=== PATIENT | male | born 1945 | race Caucasian/White ===

== ENCOUNTER → 2025-07-13 16:01 | Outpatient (REF) | payer MEDICARE, SELFPAY ==
[2025-07-13 17:30] LABS: Blood Urea Nitrogen 37 mg/dl (9-20); Calcium 10.0 mg/dl (8.4-10.2); Carbon Dioxide 27 mmol/L (22-30); Chloride 106 mmol/L (98-107); Glucose 152 mg/dl (70-99); Potassium 4.4 mmol/L (3.5-5.1); Sodium 141 mmol/L (135-145); eGFR 46.48
== END ==
LOC: REG 16:01
PROVIDERS: ATTENDING PHYSICIAN Surgery Vascular Surgery; FAMILY PHYSICIAN Internal Medicine
DX: I65.23 Occlusion and stenosis of bilateral carotid arteries (principal)
CPT/HCPCS: 36415; 80048

== ENCOUNTER → 2025-07-28 08:33 | Outpatient (REF) | payer MEDICARE, SELFPAY | LOC: RAD 08:33 | PROVIDERS: ATTENDING PHYSICIAN Surgery Vascular Surgery; FAMILY PHYSICIAN Internal Medicine | DX: I65.23 Occlusion and stenosis of bilateral carotid arteries (principal) | CPT/HCPCS: 70496; 70498; 93880; Q9967 ==

== ENCOUNTER → 2025-09-15 14:30 | Outpatient (REF) | payer MEDICARE, SELFPAY | LOC: HWRAD 14:30 | PROVIDERS: ATTENDING PHYSICIAN Surgery Vascular Surgery; FAMILY PHYSICIAN Internal Medicine | DX: R55 Syncope and collapse (principal); R41.82 Altered mental status, unspecified | CPT/HCPCS: 70450 ==

== ENCOUNTER 2025-09-20 06:22 | Inpatient (IN) | payer MEDICARE, SELFPAY ==
[2025-09-13 09:42] VITALS: BMI 21.7
[2025-09-13 10:47] LABS: Hematocrit 37.7 % (39.0-52.0); Hemoglobin 12.5 g/dL (13.0-18.0); Mean Corp Hgb Conc. 33.2 g/dL (33.0-37.0); Mean Corpuscular Volume 91.7 fL (80.0-94.0); Nucleated Red Blood Cells % 0 % (-); Platelet Count 209 10^3/uL (130-400); Red Cell Dist. Width 13.7 % (11.5-14.5)
[2025-09-13 11:04] LABS: INR 1.05; PT 14.0 Sec (11.4-14.6)
[2025-09-13 11:05] LABS: APTT 29.9 Sec (23.4-35.0)
[2025-09-13 11:27] LABS: Blood Urea Nitrogen 34 mg/dl (9-20); Calcium 9.6 mg/dl (8.4-10.2); Carbon Dioxide 23 mmol/L (22-30); Chloride 108 mmol/L (98-107); Estimated Creatinine Clearance 38 ml/min; Glucose 123 mg/dl (70-99); Potassium 3.9 mmol/L (3.5-5.1); Sodium 140 mmol/L (135-145); eGFR 46.48
[2025-09-20] VITALS (13 sets, daily range): BP systolic 126–163; BP diastolic 56–75; BMI 21.4
--- NOTE | 2025-09-20 07:05 | W.SUR.PREOP ---
Pre-Operative Surgical Note
-
I have examined this patient prior to the performance of the scheduled procedure.
The patient's condition is unchanged from the time of the current History and
Physical and the patient is able to undergo the scheduled procedure.
--- NOTE | 2025-09-20 07:06 | HP.FOC2 ---
Focused History & Physical
Chief Complaint
HPI:
Chief Complaint: Left carotid artery stenosis
HPI / Indication for Planned Procedure: This is an 80-year-old male with significant past medical history for coronary artery disease status post CABG, syncope, hyperlipidemia, chronic kidney disease, hyperkalemia, diabetes, bradycardia, kidney
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 Patient presents to [facility] for scheduled
left carotid endarterectomy with Dr. Dom Gonzalez III. Patient denies nausea, vomiting, fever, chills, headache, abdominal pain, chest pain, shortness of breath, and dyspnea on exertion. He does endorse continued left arm and leg weakness but is
making improvements with intensive therapy. He utilizes a left leg brace and intermittently wheelchair for ambulation purposes. He endorses he is at his baseline health today.
Relevant Past Medical History: Other (coronary artery disease status post CABG, syncope, hyperlipidemia, chronic kidney disease, hyperkalemia, diabetes, bradycardia, kidney stones, acid reflux, prostate cancer, neuropathy, atrial fibrillation,
achalasia of esophagus, diabetic retinopathy, and right hemisphere CVA January 06, 2025 with )
Relevant Social History: Negative
Relevant Family History: Negative
Relevant Past Surgical History: Positive for (CABG)
Review of Systems
Review of Pertinent Systems: All Systems Negative
Medication
See Medication form for detailed medications: Yes
Medication List (including Herbals & OTC):
acetaminophen 325 mg tablet (Tylenol) 325 mg PO PRN PRN PAIN 09/09/25
amlodipine 5 mg tablet 5 mg PO HS 09/09/25
aspirin 81 mg tablet,delayed release 81 mg PO DAILY 09/09/25
atorvastatin 80 mg tablet 80 mg PO HS 09/09/25
docusate sodium 100 mg capsule (Colace) 100 mg PO BID 09/09/25
empagliflozin 25 mg tablet (Jardiance) 25 mg PO DAILY 09/09/25
pantoprazole 40 mg tablet,delayed release 40 mg PO DAILY 09/09/25
semaglutide 0.25 mg or 0.5 mg (2 mg/3 mL) subcutaneous pen injector (Ozempic) 0.25 mg SC QWEEK 09/09/25
tamsulosin 0.4 mg capsule (Flomax) 0.4 mg PO HS 09/09/25
ticagrelor 90 mg tablet (Brilinta) 90 mg PO BID 09/09/25
Medications Reviewed: Yes
Allergies and Reactions
Patient has Allergies: Yes
Noted Allergies and Reactions:
Allergy/AdvReac Type Severity Reaction Status Date / Time
Penicillins Allergy Rash Verified 09/09/25 16:43
Pertinent Physical Exam
All Other Systems: Negative
Head/Neck: Normal
Lungs: Normal (Bilateral lungs clear to auscultation)
Heart: Other (RRR with murmur)
Abdomen: Normal (Nontender and nondistended)
Extremities: Other (Left upper extremity and lower extremity with residual weakness following stroke in December 2024)
Neurological: Other (Left upper extremity and lower extremity with residual weakness following stroke in December 2024)
Diagnosis / Assessment
Assessment: 80-year-old male with significant left carotid stenosis
Plan / Procedure
Plan: Will proceed with scheduled left carotid endarterectomy with Dr. Dom Gonzalez III
Anesthesia/Sedation to be done by Anesthesia Provider: Yes
[2025-09-20 07:07] LABS: Glucose - Point of Care 147 mg/dl (70-99)
[2025-09-20] MEDS: BACTROBAN NASAL 1 GRAM NASAL (07:20)
[2025-09-20] MEDS: PERIDEX 0.12% ORAL RINSE 15 ML PO (07:20)
[2025-09-20] MEDS: NSS 500 IV (07:21)
[2025-09-20] MEDS: VANCOCIN 200 IV (07:22)
[2025-09-20 09:07] LABS: ACT-LR - POC 277 Seconds (116-155)
[2025-09-20 09:20] LABS: Glucose - Point of Care 175 mg/dl (70-99)
[2025-09-20 09:50] LABS: ACT-LR - POC 244 Seconds (116-155)
[2025-09-20 11:01] LABS: Glucose - Point of Care 205 mg/dl (70-99)
[2025-09-20] MEDS: NOVOLOG vial 1 UNITS SC (11:15)
--- NOTE | 2025-09-20 12:38 | CON.INTV ---
Consultation
Consultation Request
Date/Time Consultation Requested: 09/20/2025-12:30 PM
Date/Time Consultation Performed: 09/20/2025- 45 PM
Requesting Provider: Dr. Gonzalez
Performing Provider: Dr. Tomas
Reason for Consultation: Postoperative critical care management
Medical History
-
Chief Complaint: Carotid stenosis-left
History of Present Illness:
80-year-old non-smoking male with a history of hyperlipidemia, CAD/CABG, chronic kidney disease, diabetes, kidney stones, GERD, prostate cancer, neuropathy, atrial fibrillation, right hemispheric CVA December 2024 with residual left-sided weakness
presented with known left carotid stenosis and underwent left carotid endarterectomy 09/20/[address] 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 Patient was seen in the surgical intensive care unit. Operative records
were reviewed. He denies any shortness of breath, chest pain, chest tightness, abdominal pain, leg swelling or focal weakness, dysarthria or numbness.
Past Medical History
Past Medical History: None (CAD/CABG. Syncope. Hyperlipidemia. Chronic kidney disease. Diabetes. Kidney stones. GERD. Prostate cancer. Neuropathy. Atrial fibrillation. Achalasia of esophagus. Retinopathy. Right hemispheric CVA 12/2024
with residual hemiparesis)
Social History
Tobacco: Non-smoker
Alcohol: None
Drug: None
Occupational Exposures: No known asbestos exposure
Environmental Exposures: no known tuberculosis exposure
Family History
Family History: Reviewed & Not Pertinent
Allergies / Home Medications
Allergies
Allergy/AdvReac Type Severity Reaction Status Date / Time
Penicillins Allergy Intermediate Rash Verified 09/20/25 07:14
Home Medications
�Medication �Instructions �Recorded �Confirmed �Last Taken �Type
acetaminophen 325 mg tablet 325 mg PO PRN PRN PAIN left 09/09/25 09/20/25 09/19/25 20:00 History
(Tylenol) shoulder, headache and stiff neck
amlodipine 5 mg tablet 5 mg PO HS 09/09/25 09/20/25 09/19/25 20:00 History
aspirin 81 mg tablet,delayed 81 mg PO DAILY 09/09/25 09/20/25 09/19/25 09:00 History
release
atorvastatin 80 mg tablet 80 mg PO HS 09/09/25 09/20/25 09/19/25 20:00 History
docusate sodium 100 mg capsule 100 mg PO BID 09/09/25 09/20/25 09/19/25 21:00 History
(Colace)
empagliflozin 25 mg tablet 25 mg PO DAILY 09/09/25 09/20/25 09/16/25 08:00 History
(Jardiance)
pantoprazole 40 mg tablet,delayed 40 mg PO DAILY 09/09/25 09/20/25 09/19/25 09:00 History
release
semaglutide 0.25 mg or 0.5 mg (2 0.25 mg SC QWEEK 09/09/25 09/20/25 09/10/25 11:00 History
mg/3 mL) subcutaneous pen injector
(Ozempic)
tamsulosin 0.4 mg capsule (Flomax) 0.4 mg PO HS 09/09/25 09/20/25 09/19/25 20:00 History
ticagrelor 90 mg tablet (Brilinta) 90 mg PO BID 09/09/25 09/20/25 09/19/25 20:00 History
Review of Systems
-
Unable to Obtain full review of systems at this time due to: Other (Per HPI)
Vitals / Labs / Diagnostic Testing
Vital Signs
Temp Pulse Resp BP Pulse Ox
99.0 F 75 13 133/59 99
09/20/25 11:40 09/20/25 12:15 09/20/25 12:15 09/20/25 12:15 09/20/25 12:15
Diagnostic Testing:
Physical Exam
-
Exam:
Well-nourished and well-developed in no apparent distress
HEENT-atraumatic, normocephalic
Neck-supple, no JVD, no bruit
Heart-regular rate and rhythm-no murmurs, rubs or gallops
Chest-clear to auscultation, no wheezes, crackles
Back-no tenderness
Abdomen-soft, nontender, nondistended, no hepatosplenomegaly
Extremities-no cyanosis, clubbing, edema and good peripheral pulses
Integument-intact, no rashes, lesions or ecchymosis
Neurology-alert and oriented, mild hemiparesis
Assessment
-
80-year-old non-smoking male with a history of hyperlipidemia, CAD/CABG, chronic kidney disease, diabetes, kidney stones, GERD, prostate cancer, neuropathy, atrial fibrillation, right hemispheric CVA December 2024 with residual left-sided weakness
presented with known left carotid stenosis and underwent left carotid endarterectomy 09/20/[address] 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
Left carotid stenosis
Status post left CEA-Dr. Gonzalez 09/20/2025
History CVA December 2024
Mild normocytic anemia-hemoglobin 12.5
Chronic renal insufficiency-serum creatinine 1.5
Hyperglycemia-blood sugar 123
Conditions present prior to admission:
CAD/CABG.
Syncope.
Hyperlipidemia.
Chronic kidney disease.
Diabetes.
Kidney stones.
GERD.
Prostate cancer.
Neuropathy.
Atrial fibrillation.
Achalasia of esophagus.
Retinopathy.
Right hemispheric CVA 12/2024 with residual hemiparesis
Fracture arm 1972. Nephroureterostomy 1993. CABG x 3-HUP 2016. POEM procedure at [place] 2022.
Plan
Postoperative surgical intensive care unit monitoring
Supplemental oxygen as needed
Incentive spirometry
Aspiration precautions
Neuro and vascular checks per protocol
Monitor blood pressure/perfusion pressures and pulses closely
Vascular surgery following-correspondence and operative notes reviewed
DVT prophylaxis
Early nutrition
Early mobilization
Reviewed with and children at the bedside
Critical care statement: A total of 55 minutes of critical care time was provided for this patient today. This includes management of unstable vital signs, evaluation of the patient at bedside, reviewing the patient's pertinent medical records
including radiographs, microbiology, laboratory evaluations, and discussion with primary team, consultants, pharmacy, nutrition, physical therapy, case management, charge nurse, critical care nursing, and respiratory therapy.
Diagnostic data:
Chest x-ray 09/13/2025-lungs clear
CT head 09/15/2025-no acute intracranial abnormalities, unchanged encephalomalacia within the right aspect of the davon, moderate atrophy with sequelae of moderate chronic small vessel ischemic disease
Data Reviewed
-
EKG: Report reviewed by me
Radiology: Report reviewed by me
CT Scan: Report reviewed by me
Medical Tests (Nuc Med, Echo etc): Report reviewed by me
Labs: Labs reviewed by me
Old Records: Reviewed
Critical Care Time (in minutes): 55
--- NOTE | 2025-09-20 12:45 | PTCARENOTE ---
Patient arrived from PACU. Oriented to room and use of call park. Neuro checks in place; pt has chronic left facial droop/LUE/LLE weakness from hx stroke. Joi zeroed and correlating to external BP cuff. Reports 2-4 pain out of 10 to left neck
incision. PRN Tylenol provided. Incision is C/D/I. Ice pack in place to site. 2 RN skin check done; left heel and sacrum red, intact and blanching. Bruise to left buttock from recent fall. EKG/ Labs/ CBG/ CXR done per protocol. SCDs on. NSR w/
degree. on tele. Condom cath placed. Otherwise see work-list assessment. Call park within reach. Pt thankful for care.
[2025-09-20 13:05] LABS: Glucose - Point of Care 161 mg/dl (70-99)
--- NOTE | 2025-09-20 13:17 | OR.RPT ---
Operative Report
Operative Report
Date of Operation: 09/20/2025
Pre Op Diagnosis: Left carotid stenosis, asymptomatic
Post Op Diagnosis: Left carotid stenosis, asymptomatic
Procedure: LEFT carotid endarterectomy with patch angioplasty using bovine pericardium
Surgeon: Dom Gonzalez III, MD
Children'S Program Coordinator: Rosie Vanessa MD PGY2
Anesthesia: General
Complications: None
History and Indications for Procedure: 80-year-old male with asymptomatic high-grade calcified left carotid artery stenosis
Procedure in Detail: Hardy Pizano was correctly identified and placed supine on the operating table. After adequate induction of anesthesia the left neck was positioned, prepped and draped in the usual sterile fashion. Preoperative antibiotics
were administered. A time out procedure was performed with the nursing and anesthesia staff confirming the patients identity as well as the nature and laterality of the procedure.
The carotid bifurcation was marked with ultrasound at the beginning of the case. The incision was planned accordingly. An incision was made along the anterior border of the left sternocleidomastoid muscle. Electrocautery was used to divide the
subcutaneous tissue and platysma. The carotid sheath was entered with sharp dissection. The internal jugular vein was retracted laterally. The vagus nerve was identified and protected throughout the case. The common carotid artery was identified at
the base of this incision and carefully encircled with a vessel loop. The patient was systemically heparinized. The dissection was continued distally towards the carotid bifurcation. The facial vein was skeletonized, ligated and divided between ties
and clips. The proximal external carotid artery was encircled with a vessel loop. The distal internal carotid artery was encircled with a vessel loop at a soft spot on the artery beyond the plaque.
The internal vessel loop was secured followed by the common and external. An arteriotomy was made on the distal common carotid artery with an 11-blade. This was extended proximally and distally with Seaman scissors. The arteriotomy was extended
distally through the plaque to an area of normal appearing internal carotid artery. The distal vessel loop was replaced with a short tip hockey-stick type vascular clamp. An endarterectomy was performed with a Merrillan elevator in the standard
fashion. The proximal extent of the plaque was transected with scissors. The distal end of the plaque in the internal carotid artery was feathered. No distal intimal flap was identified. The plaque extending into the external carotid artery was
everted. Once the plaque was fully removed the endarterectomy plane was irrigated with heparinized saline and any loose fronds of tissue were removed. A pre-cut piece of bovine pericardium was sewn in place using a running 6-0 Prolene suture. Prior
to the completion of the patch the common carotid was allowed to forward bleed and the external was allowed to back bleed. The area under the patch was irrigated with heparinized saline to remove any potential thrombus or debris. The anastomosis was
completed.
The external vessel loop was released first, followed by the common and then the internal. There was an excellent pulse in the distal internal carotid artery. An excellent quality Doppler signal in the distal internal carotid artery was also
confirmed. The patch suture line was closely inspected for hemostasis and was achieved. Protamine was administered. Hemostasis was achieved in the wound bed. The wound was irrigated with saline solution.
The wound was then closed in layers. Sterile skin glue was applied. The patient awoke from anesthesia with no immediate neuro deficits and was taken to the PACU in stable condition.
Attestation: I was present and responsible for the entire procedure
Signed:
Dom Gonzalez III, MD
Vascular Surgery
[facility]
[2025-09-20] MEDS: NSS 1000 IV (13:26)
[2025-09-20] MEDS: TYLENOL 650 MG PO ×3 (13:27→23:53)
[2025-09-20 14:10] LABS: Hematocrit 31.5 % (39.0-52.0); Hemoglobin 11.1 g/dL (13.0-18.0); Mean Corp Hgb Conc. 35.2 g/dL (33.0-37.0); Mean Corpuscular Volume 90.0 fL (80.0-94.0); Platelet Count 168 10^3/uL (130-400); Red Cell Dist. Width 13.7 % (11.5-14.5)
[2025-09-20 14:18] LABS: INR 1.19; PT 15.4 Sec (11.4-14.6)
[2025-09-20 14:19] LABS: APTT 31.6 Sec (23.4-35.0)
[2025-09-20 14:34] LABS: ALT (SGPT) 17 U/L (0-50); AST (SGOT) 18 U/L (17-59); Albumin 3.6 g/dl (3.5-5.0); Alkaline Phosphatase 62 U/L (38-126); Blood Urea Nitrogen 33 mg/dl (9-20); Calcium 9.0 mg/dl (8.4-10.2); Carbon Dioxide 20 mmol/L (22-30); Chloride 111 mmol/L (98-107); Estimated Creatinine Clearance 42 ml/min; Glucose 156 mg/dl (70-99); Magnesium 1.9 mg/dl (1.6-2.3); Potassium 4.1 mmol/L (3.5-5.1); Sodium 136 mmol/L (135-145); Total Protein 6.2 g/dl (6.3-8.2); eGFR 50.49
--- NOTE | 2025-09-20 16:00 | PTCARENOTE ---
Patient tolerated clear liquid diet; diet advanced. Systems unchanged, family at bedside. Tylenol provided pain relief. Incision intact and unchanged. Call park within reach.
[2025-09-20] MEDS: HEPARIN 5000 UNITS SC ×2 (16:59→23:52)
[2025-09-20 17:13] LABS: Glucose - Point of Care 222 mg/dl (70-99)
[2025-09-20] MEDS: NOVOLOG FLEXPEN-LOW RESISTANCE 3 UNITS SC (18:00)
--- NOTE | 2025-09-20 20:00 | PTCARENOTE ---
rec'd pt resting in bed, neuro check q1hr, denise , has previous cva w. left sided weakness & left facial droop, follows commands, 1' av block left rad igor w/ good wave form, flushes well, zeroed, accurate to cuff, to keep [id number], weak distal
pulses, skin warm/dry, RA, lungs decr in bases, sat 99, reaches 1500 on IS, + bowel sounds, no bm, abd soft, nontender, no n/v, kim fluids, #21 condom cath on- voiding yellow urine, left neck inc w/ surgical adhesive, ecchy at site
[2025-09-20] MEDS: BRILINTA 90 MG PO (20:07)
[2025-09-20] MEDS: NORVASC 5 MG PO (21:55)
[2025-09-20] MEDS: FLOMAX 0.4 MG PO (21:55)
[2025-09-20] MEDS: LIPITOR 80 MG PO (21:56)
[2025-09-20 22:05] LABS: Glucose - Point of Care 208 mg/dl (70-99)
--- NOTE | 2025-09-21 | PTCARENOTE ---
sys reviewed, neuro unch, CHG bath done, linens changed
[2025-09-21 00:14] VITALS: BP 153/61
[2025-09-21] MEDS: NSS 1000 IV (01:02)
[2025-09-21 03:21] LABS: Hematocrit 29.2 % (39.0-52.0); Hemoglobin 10.2 g/dL (13.0-18.0); Mean Corp Hgb Conc. 34.9 g/dL (33.0-37.0); Mean Corpuscular Volume 90.7 fL (80.0-94.0); Platelet Count 166 10^3/uL (130-400); Red Cell Dist. Width 13.7 % (11.5-14.5)
[2025-09-21 03:27] LABS: INR 1.19; PT 15.4 Sec (11.4-14.6)
[2025-09-21 03:28] LABS: APTT 40.7 Sec (23.4-35.0)
[2025-09-21 03:44] LABS: Blood Urea Nitrogen 29 mg/dl (9-20); Calcium 8.8 mg/dl (8.4-10.2); Carbon Dioxide 21 mmol/L (22-30); Chloride 112 mmol/L (98-107); Estimated Creatinine Clearance 49 ml/min; Glucose 165 mg/dl (70-99); Potassium 4.2 mmol/L (3.5-5.1); Sodium 140 mmol/L (135-145); eGFR > 60.00
--- NOTE | 2025-09-21 04:00 | PTCARENOTE ---
sys reviewed, no changes
[2025-09-21 05:40] VITALS: BMI 21.2
--- NOTE | 2025-09-21 07:26 | W.PN.INTV ---
Today's Communication / Plan
Recommendations
Begin to deline
Increase activity
Neurovascular checks
Transfer out of ICU-tunnel miner will sign off-please call pulmonary with respiratory questions
Assessment
-
80-year-old non-smoking male with a history of hyperlipidemia, CAD/CABG, chronic kidney disease, diabetes, kidney stones, GERD, prostate cancer, neuropathy, atrial fibrillation, right hemispheric CVA December 2024 with residual left-sided weakness
presented with known left carotid stenosis and underwent left carotid endarterectomy 09/20/[address] Gonzalez-tunnel miner consulted for postoperative critical care management 09/20/25.
Left carotid stenosis
Status post left CEA-Dr. Gonzalez 09/20/2025
History CVA December 2024
Mild normocytic anemia-hemoglobin 12.5
Chronic renal insufficiency-serum creatinine 1.5
Hyperglycemia-blood sugar 123
Conditions present prior to admission:
CAD/CABG.
Syncope.
Hyperlipidemia.
Chronic kidney disease.
Diabetes.
Kidney stones.
GERD.
Prostate cancer.
Neuropathy.
Atrial fibrillation.
Achalasia of esophagus.
Retinopathy.
Right hemispheric CVA 12/2024 with residual hemiparesis
Fracture arm 1971. Nephroureterostomy 1993. CABG x 3-HUP 2016. POEM procedure at [place] 2022.
Plan
Hemodynamically and neurovascularly intact
Wean supplemental oxygen
Incentive spirometry encourage
Aspiration precautions
Monitor hemoglobin
Transfuse if needed
Monitor blood sugars
Insulin supplementation if needed
Neuro and vascular checks per protocol also continue
Vascular surgery closely
DVT prophylaxis recommended
Nutrition
Increase activity/physical therapy
Patient can be transferred out of ICU-call pulmonary if respiratory issues arise
Reviewed the patient's pertinent medical records including radiographs, microbiology, laboratory evaluations, and discussion with primary team, consultants, pharmacy, nutrition, physical therapy, case management, charge nurse, critical care
nursing, and respiratory therapy.
Diagnostic data:
Chest x-ray 09/13/2025-lungs clear
CT head 09/15/2025-no acute intracranial abnormalities, unchanged encephalomalacia within the right aspect of the davon, moderate atrophy with sequelae of moderate chronic small vessel ischemic disease
Subjective Dataa
Subjective Data
Date of Service:
Date of Service: September 21, 2025
Chief Complaint: Intern Follow Up
Subjective:
Had a good night, no focal weakness or dysarthria, no shortness of breath, chest pain, chest congestion, abdominal pain
Review of Systems
General: Other (Per HPI)
Objective Data
Data Reviewed
Vital Signs / I&O / Oxygen:
Vital Signs
Temp Pulse Resp BP Pulse Ox
97.9 F 59 15 153/61 99
09/21/25 04:00 09/21/25 06:00 09/21/25 06:00 09/21/25 00:14 09/21/25 06:00
Intake and Output
09/20/25 09/21/25 09/22/25
06:59 06:59 06:59
Intake Total 2640 / 2640
Output Total 2250 / 2250
Balance 390 / 390
SaO2 99
Physical Exam
General: Respiratory Distress
HEENT: Normocephalic, Anicteric and Moist Mucous Membranes
Cardiovascular: Regular Rhythm and Murmur (n)
Respiratory: Clear, Crackles (n), Rhonchi (n), Non-Labored Respirations, Accessory Resp Muscle Use (n) and Stridor (n)
GI: Soft, Non Distended and Non Tender
Neurology: Awake, Alert and No Motor Deficits
Skin: Warm, Good Color, Cyanosis (n), Jaundice (n) and Rash (n)
Labs/Micro/Reports
Lab Data
09/21/25 03:00
09/21/25 03:00
Laboratory Results
09/20/25 09/21/25
14:01 03:00
PT 15.4 H 15.4 H
INR 1.19 1.19
APTT 31.6 40.7 H
[2025-09-21 07:34] LABS: Glucose - Point of Care 116 mg/dl (70-99)
--- NOTE | 2025-09-21 08:00 | PTCARENOTE ---
Received pt awake and alert.Speech is appropriate.Pre-existing weakness left upper and lower extremity.+4-5/5 right upper and lower extremity.Pt reports minor neck pain.SR with 1st degree AVB noted.IVF and A Line discontinued as ordered.Lungs
CTA.POX 98% on RA.Appetite excellent.Voiding via condom catheter.Left neck with surgical adhesive intact.Plan of care discussed with pt.
[2025-09-21] MEDS: NOVOLOG FLEXPEN-LOW RESISTANCE SC (08:03)
[2025-09-21] MEDS: ASPIR LOW (ENTERIC COATED) 81 MG PO (08:08)
[2025-09-21] MEDS: HEPARIN 5000 UNITS SC (08:08)
[2025-09-21] MEDS: BRILINTA 90 MG PO (08:08)
[2025-09-21] MEDS: FARXIGA 10 MG PO (08:08)
[2025-09-21] MEDS: PROTONIX 40 MG PO (08:08)
--- NOTE | 2025-09-21 09:04 | W.PN.VS ---
Addendum entered and electronically signed by Oumar Rico MD 09/21/25 14:45:
Seen and examined earlier this a.m. with HUBERT Dumont. Agree with findings as noted below. This is a late entry. Patient without complaints. Left neck incision clean dry and intact. No hematoma. Neurologically stable. Tongue midline. Plan/as
discussed and noted below.
Original Note:
Today's Communication / Plan
-
Patient seen and examined at bedside with Dr. Oumar Rico, below plan reviewed with attending.
Assessment/Plan
-
Assessment: 80-year-old male POD #1 left carotid endarterectomy
Plan:
Discontinue IV fluid
Discontinue arterial line
Out of bed to chair with progression ambulation as tolerated as patient has baseline weakness
Continue home regimen of dual antiplatelet therapy of aspirin 81 mg p.o. daily with Brilinta 90 mg p.o. daily, patient will also continue his statin regimen
Likely discharge later this afternoon pending patient progression
Subjective Data
-
Date of Service: September 21, 2025
Patient seen and examined at bedside with Dr. Oumar Rico M.D., patient offers no complaints. Denies headache, weakness to right upper or lower extremity. Reports well-managed postoperative pain at left neck incision. Currently eating breakfast and
tolerating p.o. diet well.
Objective Data
-
Vital Signs
Temp Pulse Resp BP Pulse Ox
98.1 F 59 15 153/61 99
09/21/25 07:37 09/21/25 06:00 09/21/25 06:00 09/21/25 00:14 09/21/25 06:00
Intake and Output
09/20/25 09/21/25 09/22/25
06:59 06:59 06:59
Intake Total 2640 / 2640
Output Total 2250 / 2250
Balance 390 / 390
Intake:
Oral fluids 860 / 860
IV fluids (Total) 1580 / 1580
NSS 620 / 620
Nss 1,000 ml @ 80 mls/hr IV . 960 / 960
[id number] PAULINE Rx#:[id number]
IV piggybacks 200 / 200
Output:
Urine, Voided 2250 / 2250
Lab Results
09/21/25 03:00
09/21/25 03:00
Calcium 8.8 mg/dl (8.4-10.2) 09/21/25 03:00
Phosphorus 3.5 mg/dl (2.5-4.5) 09/20/25 14:01
Magnesium 1.9 mg/dl (1.6-2.3) 09/20/25 14:01
Total Bilirubin 0.5 mg/dl (0.2-1.3) 09/20/25 14:01
AST 18 U/L (17-59) 09/20/25 14:01
ALT 17 U/L (0-50) 09/20/25 14:01
Alkaline Phosphatase 62 U/L (38-126) 09/20/25 14:01
Total Protein 6.2 g/dl (6.3-8.2) L 09/20/25 14:01
Albumin 3.6 g/dl (3.5-5.0) 09/20/25 14:01
Physical Exam
-
No apparent distress, resting in bed comfortably
Left neck surgical incision clean, dry, and intact, no evidence of hematoma, tongue midline
No tachycardia
No dyspnea on room air
Left upper extremity and lower extremity with continued unchanged weakness from baseline following a prior stroke, right upper extremity and lower extremity with full strength
--- NOTE | 2025-09-21 11:29 | PTCARENOTE ---
Pt assessed.No change in assessment noted.Assisted OOB to chair with 2 person moderate assist.Condom catheter removed.Pt's own attends applied as requested.
[2025-09-21 11:38] VITALS: BP 136/66
[2025-09-21 12:00] VITALS: BP 130/67
--- NOTE | 2025-09-21 12:24 | CM ---
December 2024, R CVA, L sided weakness Initial assessment completed with patient who lives with his in a 2 story plus basement home, B/B on , 3 steps to enter in back. 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
assistance with ADL's. Does not drive. Has a L leg brace, quad cane, transport chair, w/ch, SC, grab bars in BR, shower rail. Patient has home health services with [facility] for CLINICAL REVIEW NURSE 4 days a week for 4 hours/day; [facility] paid through Medicare for
PT/OT 2-3 x/week, and; Private rehab with [facility] 3 days a week-private pay. No HC-POA. No VA benefits. No psychiatric hospitalizations. PCP is Dr. Matt Egan. Pharmacy is [facility] in [place]. Discharge POC: Anticipate home
with resumption of above services.
[2025-09-21 13:03] LABS: Glucose - Point of Care 170 mg/dl (70-99)
--- NOTE | 2025-09-21 13:07 | PTCARENOTE ---
Pt assessed.No change in assessment noted.Awaiting for discharge as per MD order.
[2025-09-21] MEDS: NOVOLOG FLEXPEN-LOW RESISTANCE 1 UNITS SC (13:12)
--- NOTE | 2025-09-21 14:09 | W.DS.TRANS ---
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
-
Discharge Instructions:
Sleep Apnea Risk High
Discharge Diagnosis/Procedures Left carotid endarterectomy
Diet As tolerated
Activity No strenuous activity
Driving Restrictions Not until seen by your Dr
Bathing Restrictions OK to Shower
Instructions:
Stand-Alone Forms: Vascular Surg Discharge Instr
Changes to Home Medications: No
Discharge Medications:
DC Medications w/original date entered in [facility]
acetaminophen 325 mg tablet (Tylenol) 325 mg PO PRN PRN PAIN left shoulder, headache and stiff neck 09/09/25
amlodipine 5 mg tablet 5 mg PO HS Blood Pressure 09/09/25
aspirin 81 mg tablet,delayed release 81 mg PO DAILY Blood Clot Prevention/Tx 09/09/25
atorvastatin 80 mg tablet 80 mg PO HS High Cholesterol 09/09/25
docusate sodium 100 mg capsule (Colace) 100 mg PO BID Constipation 09/09/25
empagliflozin 25 mg tablet (Jardiance) 25 mg PO DAILY Diabetes 09/09/25
pantoprazole 40 mg tablet,delayed release 40 mg PO DAILY Gastrointestinal Issue 09/09/25
semaglutide 0.25 mg or 0.5 mg (2 mg/3 mL) subcutaneous pen injector (Ozempic) 0.25 mg SC QWEEK Diabetes 09/09/25
tamsulosin 0.4 mg capsule (Flomax) 0.4 mg PO HS Urinary Issue 09/09/25
ticagrelor 90 mg tablet (Brilinta) 90 mg PO BID Blood Clot Prevention/Tx 09/09/25
Home Medication Changes
Pending Results: No
--- NOTE | 2025-09-21 15:05 | CM ---
Patient has been medically cleared for discharge to home with resumption of previous services arranged by patient. Patient has arranged for transport home.
== END 2025-09-21 14:57 | disposition home or self-care (01) | DRG 38 ==
LOC: ICU 06:22
PROVIDERS: ADMITTING PHYSICIAN Surgery Vascular Surgery; CONSULT PHYSICIAN Internal Medicine Critical Care Medicine; PRIMARYCARE PHYSICIAN Internal Medicine
PROC: 03UJ0KZ Supplement Left Common Carotid Artery with Nonautologous Tissue Substitute, Open Approach (ICD-10-PCS; 2025-09-20)
PROC: 03CJ0ZZ Extirpation of Matter from Left Common Carotid Artery, Open Approach (ICD-10-PCS; 2025-09-20)
DX: I65.22 Occlusion and stenosis of left carotid artery (principal); I69.354 Hemiplegia and hemiparesis following cerebral infarction affecting left non-dominant side; Z88.0 Allergy status to penicillin; Z85.46 Personal history of malignant neoplasm of prostate; I25.10 Atherosclerotic heart disease of native coronary artery without angina pectoris; Z95.1 Presence of aortocoronary bypass graft; K21.9 Gastro-esophageal reflux disease without esophagitis; E11.22 Type 2 diabetes mellitus with diabetic chronic kidney disease; N18.9 Chronic kidney disease, unspecified; Z87.442 Personal history of urinary calculi; E78.5 Hyperlipidemia, unspecified; I48.91 Unspecified atrial fibrillation; E11.319 Type 2 diabetes mellitus with unspecified diabetic retinopathy without macular edema; K22.0 Achalasia of cardia; E11.40 Type 2 diabetes mellitus with diabetic neuropathy, unspecified; E11.65 Type 2 diabetes mellitus with hyperglycemia; Z79.82 Long term (current) use of aspirin; Z79.84 Long term (current) use of oral hypoglycemic drugs; Z79.85 Long-term (current) use of injectable non-insulin antidiabetic drugs; Z79.899 Other long term (current) drug therapy; Z79.02 Long term (current) use of antithrombotics/antiplatelets; D63.1 Anemia in chronic kidney disease
CPT/HCPCS: 35301; 36415; 71045; 71046; 80048; 80053; 82962; 83735; 84100; 85025; 85027; 85610; 85730; 88304; 88311; 93005; 95938; 95941; 95955